=== PATIENT | female | born 1955 | race Caucasian/White ===

== ENCOUNTER 2016-10-25 12:51 | Day surgery (SDC) | payer BC ==
[~2016-10-25] VITALS: Ht 170.2 cm; Wt 78.7 kg
[~2016-10-25 12:51] MED LIST: LEVOTHYROXINE; OMEPRAZOLE; SIMVASTATIN
[2016-10-25 13:36] VITALS: Ht 170.2 cm; Wt 78.7 kg
[2016-10-25] MEDS ORDERED: FENTAnyl 50 MCG/ML VIAL ONE (13:54)
[2016-10-25] MEDS ORDERED: PROPOFOL 20 ML ONE (13:54)
[2016-10-25] MEDS ORDERED: MIDAZOLAM 1 MG/ML 2 ML INJ ONE (13:55)
[2016-10-25 14:01] VITALS: BP 162/81; PULSE 62; RESP 16
[2016-10-25 14:55] VITALS: BP 142/80; PULSE 59; RESP 16
--- NOTE | 2016-10-25 15:29 | GILP ---
DATE OF PROCEDURE: 10/25/2016 PROCEDURE: Esophagogastroduodenoscopy with biopsies. SURGEON: Adan Valle MD. BRIEF HISTORY AND INDICATIONS: The patient is being evaluated for dyspepsia, abdominal pain. PREMEDICATION: Monitored anesthesia care by anesthesiologist. INSTRUMENT USED: Olympus panendoscope. TECHNIQUE: After informed consent, with the patient/relatives understanding the procedure, its indic ations, potential risks and complications, including but not limited to: allergic reaction, bleeding , perforation or infection, and after all pertinent questions were answered to the patients satisfac tion, the patient/relatives signed witnessed informed consent. Following this, premedication was ad ministered slowly IV push under careful cardiovascular and respiratory monitoring with pulse oximetr y, automatic blood pressure and phototypesetting equipment monitor. Once the sedative effect was achieved the patient was p lace in the left lateral decubitus, the panendoscope was introduced and advanced under visual contro l. Careful examination of the upper gastrointestinal tract, both on insertion as well as withdrawal of the instrument disclosed the following findings: ESOPHAGUS: The distal esophagus shows erythema, edema and superficial erosion of the mucosa. Ther e is irregularity of the EG junction and an island of heterotopic mucosa is present. Biopsies were obtained to rule out Amador's esophagus. STOMACH: Upon entrance to the stomach air was insufflated, the gastric diaz distended normally. Th ere is erythema and edema of the mucosa of a moderate degree. Biopsies were obtained to rule out H. pylori infection. PYLORUS: The pylorus appears patent and within normal limits, with no evidence of gastric outlet obs truction. DUODENUM: The duodenal mucosa was carefully examined in the duodenal bulb as well as the second port ion of the duodenum and appears unremarkable with no evidence of duodenitis, ulcer or neoplasm. The instrument was then withdrawn, the patient tolerated the procedure well and was transfer out of the endoscopy suite awake, and in good condition to continue recovery under observation IMPRESSION: 1. Distal esophagitis with irregular EG junction, rule out Amador's esophagus. Biopsies were obta ined. 2. Gastritis, rule out Helicobacter pylori infection, biopsies obtained. PLAN: The patient will be treated with PPIs, i.e. omeprazole 40 mg daily. Further recommendation w ill depend on review of biopsies as well as patient's clinical course. Dictated By: ADAN VALLE MS/SHAHID Conf#: [id number] DID#: [id number] CC: ADAN VALLE;*End*
== END 2016-10-25 15:10 | disposition home or self-care (01) ==
LOC: GIL 12:51
PROVIDERS: ATTEND Internal Medicine Gastroenterology
DX: K20.8 Other esophagitis (principal); K29.70 Gastritis, unspecified, without bleeding; E11.9 Type 2 diabetes mellitus without complications; E66.9 Obesity, unspecified; Z68.27 Body mass index [BMI] 27.0-27.9, adult
CPT/HCPCS: 43239; 88305; 88312; 88313; J2250; J3010; Z7610